=== PATIENT | female | born 1995 | race Asian ===

== ENCOUNTER 2019-04-20 07:49 | Day surgery (SDC) | payer BC ==
[2019-04-20] VITALS (10 sets, daily range): BP systolic 97–126; BP diastolic 57–76
[~2019-04-20] VITALS: Ht 163.8 cm; Wt 61.2 kg
[~2019-04-20 07:49] MED LIST: ceFAZolin sod 1 GM in NS 55 ML IVPB ONE
--- NOTE | 2019-04-20 08:46 | Anethesia Preoperative Eval ---
Anesthesia Pre-op PMH/ROS General Date of Evaluation: April 20, 2019 Anesthesiologist: Nicolas ASA Score: ASA 2 Mallampati Score Class I : Soft palate, uvula, fauces, pillars visible Class II: Soft palate, uvula, fauces visible Class III: Soft palate, base of uvula visible Class IV: Only hard plate visible Mallampati Classification: Class II Surgeon: Ana Diagnosis: Right preauricular cyst Surgical Procedure: Right preacuricular cyst and fistula resection Anesthesia History: none Family History: no anesthesia problems Allergies: Coded Allergies: No Known Allergies (Unverified , 04/19/19) Medications: see eMAR Patient NPO?: Yes NPO Date: April 19, 2019 Past Medical History Cardiovascular: Denies: HTN, CAD, NV, valve dz, arrhythmia, other Pulmonary: Reports: asthma; Denies: COPD, KATHIE, other Gastrointestinal/Genitourinary: Denies: GERD, CRI, ESRD, other Neurologic/Psychiatric: Denies: dementia, CVA, depression/anxiety, TIA, other Endocrine: Denies: DM, hypothyroidism, steroids, other HEENT: Denies: cataract (L), cataract (R), glaucoma, [place] (L), [place] (R), other Hematology/Immune: Denies: anemia, DVT, bleeding disorder, other Musculoskeletal/Integumentary: Denies: OA, RA, DJD, DDD, edema, other PSxH Narrative: Denies Anesthesia Pre-op Phys. Exam Physician Exam see chart Constitutional: NAD Cardiovascular: RRR Respiratory: CTA Airway Exam Mallampati Score: Class II MO: full ROM: full Teeth: intact Anesthesia Pre-op A/P Labs see chart Risk Assessment & Plan Assessment: ASA II Plan: GA Status Change Before Surgery: No Pre-Antibiotics Drug: Ancef 1g Given Within 1 Hr of Incision: Yes Nanette Schmitt MD April 20, 2019 08:46
[2019-04-20] MEDS ORDERED: NKM (09:03)
--- NOTE | 2019-04-20 09:22 | Pre-Procedure Note/Attestation ---
Pre-Procedure Note/Attestation Complete Prior to Procedure Planned Procedure: right Procedure Narrative: draining right preauricular pit unresponsive to medical treatment Indications for Procedure Pre-Operative Diagnosis: Right preauaricular pit, fistula, and cyst Attestation I attest that I discussed the nature of the procedure; its benefits; risks and complications; and alternatives (and the risks and benefits of such alternatives ), prior to the procedure, with the patient (or the patient's legal residential sales representative). I attest that, if there was a reasonable possibility of needing a blood transfusion, the patient (or the patient's legal residential sales representative) was given the [facility] standardized written summary, pursuant to the [place] Blood Safety Act ([place] Health and Safety Code # 1645, as amended). I attest that I re-evaluated the patient just prior to the surgery and that there has been no change in the patient's H&P, except as documented below: Heriberto Perez MD April 20, 2019 09:22
[2019-04-20] MEDS ORDERED: ProvayBlue 5mg/ml 10ml amp INJ ONE (09:30)
[2019-04-20] MEDS ORDERED: Midazolam 2mg/2ml Inj ONE (09:34)
[2019-04-20] MEDS ORDERED: Lidocaine 1% MPF 10mg/ml 5ml ONE (09:34)
[2019-04-20] MEDS ORDERED: fentaNYL 100 mcg/2 mL IV ONE (09:34)
[2019-04-20] MEDS ORDERED: Propofol 200mg/20ml IV ONE ×2 (09:34→09:35)
[2019-04-20] MEDS ORDERED: Lidocaine 1% Plain 30 ml INJ ONE (09:35)
[2019-04-20] MEDS ORDERED: Lidocaine 1% 10mg/ml/Epi 0.005mg/ml 30ml vial INJ ONE (09:43)
[2019-04-20] MEDS ORDERED: Bacitracin Oint 15gm Tube TOPIC ONE (09:43)
[2019-04-20] MEDS ORDERED: Lidocaine 1% 10mg/ml/EPI 0.01mg/ml 50ml INJ ONE (09:50)
[2019-04-20] MEDS ORDERED: LR 1000ml ONE (10:00)
[2019-04-20] MEDS ORDERED: NS Irrig 1000ml ONE (10:00)
[2019-04-20] MEDS ORDERED: Sterile Water Irrig 1000ml IRRIG ONE (10:00)
[2019-04-20] MEDS ORDERED: LR 1000ml 1,000 ML IVLG SCH (10:09)
[2019-04-20] MEDS ORDERED: fentaNYL 100 mcg/2 mL IV PRN (10:15)
[2019-04-20] MEDS ORDERED: Midazolam 2mg/2ml Inj IVP PRN (10:15)
[2019-04-20] MEDS ORDERED: LORazepam Inj 2mg/ml 1ml IV PRN (10:15)
[2019-04-20] MEDS ORDERED: DiphenhydrAMINE 50mg/ml Inj IVP PRN (10:15)
[2019-04-20] MEDS ORDERED: Hydromorphone 0.5mg/0.5ml inj IVP PRN (10:15)
[2019-04-20] MEDS ORDERED: Betadine 10% Oint 30gm TOPIC ONE (11:23)
[2019-04-20] MEDS ORDERED: Metoclopramide 10mg/2ml Inj ONE (11:34)
--- NOTE | 2019-04-20 12:09 | Immediate Post-Op Evaluation ---
Immediate Post-Op Evalulation Immediate Post-Op Evalulation Procedure: Excision of right preauricular pit, fistula and cyst Date of Evaluation: April 20, 2019 Time of Evaluation: 12:10 IV Fluids: 800 Blood Products: 0 Estimated Blood Loss: min Urinary Output: 0 Blood Pressure Systolic: 110 Blood Pressure Diastolic: 68 Pulse Rate: 65 Respiratory Rate: 16 O2 Sat by Pulse Oximetry: 100 Temperature (Fahrenheit): 97.6 Pain Score (1-10): 0 Nausea: No Vomiting: No Complications 0 Patient Status: awake, reacts, patent, none Hydration Status: adequate Drug: Ancef 1g Given Within 1 Hr of Incision: Yes Nanette Schmitt MD April 20, 2019 12:09
--- NOTE | 2019-04-20 12:10 | 48 Hour Post Anesthesia Eval ---
Post Anesthesia Evaluation Procedure: Excision of right preauricular pit, fistula and cyst Date of Evaluation: April 20, 2019 Airway: patent Nausea: No Vomiting: No Pain Intensity: 0 Hydration Status: adequate Cardiopulmonary Status: at baseline Mental Status/LOC: patient returned to baseline Post-Anesthesia Complications: 0 Follow-up care needed: ready to discharge Nanette Schmitt MD April 20, 2019 12:10
--- NOTE | 2019-04-20 12:12 | Brief Operative Note ---
Immediate Post Operative Note Operative Note Pre-op Diagnosis: Right preauaricular pit, fistula, and cyst Procedure: resection of right preauricular pit, cyst, and fistula with unilateral advancement flap reconstruction Post-op Diagnosis: same as pre-op Surgeon: Heriberto Perez M.D. Anesthesiologist: Nicolas Jain Anesthesia: MAC Specimen: yes - right preauricular pit, cyst and fistula tract Complications: none Condition: stable Fluids: ringers lactate Estimated Blood Loss: minimal Drains: none Packing: none Implant(s) used?: No Heriberto Perez MD April 20, 2019 12:12
--- NOTE | 2019-04-21 06:45 | Operative Note - Dictated ---
DATE OF OPERATION: 04/20/2019 SURGEON: Heriberto Perez M.D. ANESTHESIOLOGIST: Dr. Valenzuela. ANESTHESIA: LMA. 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 PROCEDURE: Resection of right preauricular pit cyst and fistula tract with unilateral advancement flap reconstruction. INDICATION FOR SURGERY: The patient is a 23-year-old female who presents with a persistent drainage from the right preauricular pit. The patient has undergone multiple surgeries prior to this surgery with persistent infection and draining from the right preauricular pit. She is now being brought to the operating room for removal of the preauricular pit and soft tissue associated deformities. The findings at surgery revealed extensive scar tissue in the right preauricular area with a pit that led to a large sac filled with a yellow, firm but chalky-like material and extension to the intertragal depression or supratragal area. PROCEDURE AND FINDINGS: The patient was brought to the operating room while premedicated and had received preoperative antibiotics. She was then placed in supine position on the operating room table. After the patient underwent LMA intubation, she was given IV sedation. The hair in front of the right ear was removed with electric shaver to adhere from entering the field and contaminating the area as well as preventing foreign bodies within the surgical field. A sterile marking pen was used to demarcate the incision starting just above the preauricular pit in an elliptical fashion and extending to just above the tragus. After an alcohol prep, approximately 4 to 5 mL of 1% Xylocaine with 1:100,000 epinephrine were used to inject the area. During the injection, the more inferior aspect of the injection noted with fluid that was draining from the preauricular pit. The patient was then prepped and draped in the usual sterile fashion. After a period of vasoconstriction, a #15 blade was used to make incision along the area previously demarcated within a wider area around the region of the preauricular pit to include a mound that had developed encountering significant scar tissue at the area. The right preauricular area had extensive scarring and loss of color from her previous surgery. Using sharp and blunt dissection, the was able to be followed through a large cyst that extended to the superior aspect of the anterior helix and down to the temporalis muscle. The cyst and preauricular pit region was able to be elevated and extension tubular structure was followed to just above the tragus. This was then removed and sent to pathology. Examination of the area revealed no evidence of any residual preauricular pit cyst or fistula tract. At that time, the sac was removed, a hard yellow with chalky-like material was found in the depth of the cyst. All bleeders controlled with cautery, and the area was then rinsed with Betadine solution. 5-0 plain was used to close the deep and intermediate soft tissue as well as the subcutaneous tissue at the area of the crosshatched. The suture of 5-0 Prolene in a horizontal mattress suture was used to reapproximate the skin at the area of the crosshatched and running interlocking suture was used to close the remaining incision sites. The area was cleaned and a pressure dressing consisting of Betadine ointment, Telfa fluffs, and a mastoid dressing was secured in place and the procedure was terminated. The patient tolerated the procedure well and left the operating room in satisfactory condition. Estimated blood loss was 20 mL. Sponge and needle counts were correct. Heriberto Perez M.D. DR: KIM JOB#: [id number] CC:
== END 2019-04-20 14:05 | disposition home or self-care (01) ==
LOC: SUR 07:49
DX: L72.0 Epidermal cyst (principal)
CPT/HCPCS: 11442; 15650; 81025; J0690; J1170; J2001; J2250; J2405; J2704; J2765; J3010; Q9968; 94003; 94150